=== PATIENT | female | born 1985 | race Caucasian/White ===

== ENCOUNTER 2017-01-21 19:10 | Emergency (ER) | payer MEDICAID ==
--- NOTE | 2017-01-21 19:13 | ED Physician Chart ---
Chief Complaint/HPI - Patient Information Date Seen:: 01/21/17 Time Seen:: 19:13 Chief Complaint:: cough History of Present Illness:: 31-year-old female, otherwise healthy, complains of acute, constant, worse at night, severe, dry, nonproductive, cough 4 days. Has associated upper respiratory congestion. Historian:: Patient Review:: Nurse's Note Reviewed Review of Systems - Review of Systems Other: Complete system review otherwise unremarkable except as noted in history of present illness. Past Medical History - Past Medical History Past Medical History: No significant medical hx Family History: None Social History: Non Smoker, No Alcohol, No Drug Use, Employed Surgical History: None Psychiatricy History: None Medication: None Family Medical History - Family Member Mother History Unknown: Yes Physical Exam - Physical Examination Other:: INITIAL VITAL SIGNS: Reviewed by me GENERAL: Alert and interactive. No acute distress HEAD: Head is normocephalic and atraumatic EYES: EOMI. PERRL. No scleral icterus. No conjunctival injection ENT: Moist mucous membranes. NECK: Supple. No masses. Full range of motion RESPIRATORY: No tachypnea. Prolonged expiratory phase bilaterally. Cough on deep inspiration. No wheezing, rales, or rhonchi CV: Regular rate and rhythm. No murmurs, rubs, or gallops ABDOMEN: Soft, non-distended, non-tender. No guarding. No rebound. No masses. EXTREMITIES: No deformity. No cyanosis. No edema. SKIN: Warm and dry. No obvious rashes. NEUROLOGIC: Alert and oriented. Face is symmetric. Speech is normal. Moves all extremities equally. Motor and sensory distally intact. ED Septic Shock - . Is Septic Shock (SBP<90, OR Lactate>4 mmol\L) present?: No Reassessment (Disposition) - Reassessment Reassessment:: Patient has acute cough due to acute bronchitis. Gave Decadron and Toradol here in the ER. Prescribed antitussives, antibiotics. Recommended follow-up with PCP in one to 2 days. Gave return to ER precautions. Patient understands and agrees with the plan. Reassessment Condition:: Improved - Diagnosis Diagnosis:: Acute cough due to acute bronchitis - Aftercare/Follow up Instructions Aftercare/Follow-Up Instructions:: Counseled pt regarding lab results/diagnosis & need follow up, Refer to Discharge Instructions Medication Prescribed:: Phenergan With Codeine cough syrup Amoxicillin - Patient Disposition Discharge/Transfer:: Home Time:: 19:52 Condition at Disposition:: Improved
[2017-01-21] MEDS ORDERED: Dexamethasone Sodium Phos 4 mg/mL Vial IVP STA (19:43)
[2017-01-21] MEDS ORDERED: Dexamethasone Sodium Phos 4 mg/mL Vial IM STA (19:43)
[2017-01-21] MEDS ORDERED: Dexamethasone Sodium Phos 10 mg/mL PF Vial ONE (19:48)
== END 2017-01-21 20:10 ==
LOC: ER 19:10
DX: J20.9 Acute bronchitis, unspecified (principal)
CPT/HCPCS: 96374; 96375; J1885; Z7502